=== PATIENT | female | born 1995 | race African-American/Black ===

== ENCOUNTER 2016-12-01 15:12 | Observation (INO) | payer MEDICAID ==
[~2016-12-01] VITALS: Ht 162.6 cm; Wt 61.2 kg
[~2016-12-01 15:12] MED LIST: [UNRECOGNIZED DRUG - REMARK]
[2016-12-01] MEDS ORDERED: LACTATED RINGERS 1,000 ML IV SCH (15:33)
[2016-12-01 16:00] LABS: KETONES URINE NEGATIVE (NEGATIVE); LEUKOCYTE ESTERASE URINE 1+ (NEGATIVE); NITRITE URINE NEGATIVE (NEGATIVE); OCCULT BLOOD URINE NEGATIVE (NEGATIVE); PH URINE 6.5 (4.5-8.0); PROTEIN URINE NEGATIVE (NEGATIVE); SPECIFIC GRAVITY URINE 1.011 (1.005-1.030)
[2016-12-01 16:10] LABS: CLARITY URINE CLEAR (CLEAR); COLOR URINE YELLOW (YELLOW)
== END 2016-12-01 16:40 | disposition home or self-care (01) ==
LOC: L&D 15:12
PROVIDERS: ADMIT Specialist; ATTEND Specialist
DX: O26.893 Other specified pregnancy related conditions, third trimester (principal); R10.9 Unspecified abdominal pain; N89.8 Other specified noninflammatory disorders of vagina; M54.9 Dorsalgia, unspecified; R10.2 Pelvic and perineal pain; Z3A.36 36 weeks gestation of pregnancy
CPT/HCPCS: 81001; 96360; 99281; G0378; J7120

== ENCOUNTER 2016-12-17 15:02 | Observation (INO) | payer MEDICAID ==
[~2016-12-17] VITALS: Ht 160 cm; Wt 67.6 kg
[2016-12-17] MEDS ORDERED: LACTATED RINGERS 1,000 ML IV SCH (15:22)
== END 2016-12-17 16:13 | disposition home or self-care (01) ==
LOC: L&D 15:02
PROVIDERS: ADMIT Specialist; ATTEND Specialist
DX: O62.9 Abnormality of forces of labor, unspecified (principal); Z3A.00 Weeks of gestation of pregnancy not specified
CPT/HCPCS: 96360; 99281; G0378; J7120

== ENCOUNTER 2017-04-19 12:53 | Emergency (ER) | payer MEDICAID ==
[~2017-04-19] VITALS: Ht 165.1 cm; Wt 57.0 kg
[2017-04-19] MEDS ORDERED: SODIUM CHLORIDE 0.9% 1,000 ML IV ONE (14:40)
[2017-04-19] MEDS ORDERED: KETOROLAC 30MG/ML VIAL IV STA (14:40)
[2017-04-19] MEDS ORDERED: ONDANSETRON HCL 4MG/2ML VIAL IV STA (14:40)
[2017-04-19 15:18] LABS: CHLORIDE 110 mEq/L (98-107)
[2017-04-19 15:21] LABS: BASOPHILS % 0.3 % (0.0-2.0); EOSINOPHILS % 0.5 % (0.0-5.0); HEMATOCRIT. 35.9 % (36.0-48.0); HEMOGLOBIN. 11.4 g/dL (12.0-16.0); LYMPHOCYTES % 9.4 % (20.0-50.0); MEAN CORPUSCULAR HEMOGLOBIN 24.1 pg (28.0-32.0); MEAN CORPUSCULAR VOLUME 75.4 fL (81.0-99.0); MEAN PLATELET VOLUME 9.9 fl (7.4-10.4); MONOCYTES % 6.5 % (2.0-8.0); NEUTROPHILS % 83.3 % (40.0-76.0); PLATELET 175 x1000/uL (130-400); RED BLOOD CELL COUNT 4.76 mill/uL (4.2-5.4); RED CELL DISTRIBUTION WIDTH 18.2 % (11.6-14.6)
[2017-04-19 15:23] LABS: CLARITY URINE CLEAR (CLEAR); COLOR URINE DARK YELLOW (YELLOW); GLUCOSE URINE NEGATIVE (NEGATIVE); KETONES URINE 1+ (NEGATIVE); LEUKOCYTE ESTERASE URINE TRACE (NEGATIVE); NITRITE URINE POSITIVE (NEGATIVE); OCCULT BLOOD URINE NEGATIVE (NEGATIVE); PROTEIN URINE TRACE (NEGATIVE); SPECIFIC GRAVITY URINE 1.028 (1.005-1.030); UROBILINOGEN URINE 0.2 E.U./dL (0.2-1.0)
[2017-04-19 15:26] LABS: HCG SCREEN NEGATIVE
[2017-04-19 15:35] LABS: *AMPHETAMINES SCREEN URINE NEGATIVE (NEGATIVE); *BARBITURATES SCREEN URINE NEGATIVE (NEGATIVE); *BENZODIAZEPINES SCREEN URINE NEGATIVE (NEGATIVE); *COCAINE SCREEN URINE NEGATIVE (NEGATIVE); CANNABINOID URINE SCREEN NEGATIVE (NEGATIVE); METHADONE URINE SCREEN NEGATIVE (NEGATIVE); OPIATES URINE SCREEN NEGATIVE (NEGATIVE); PHENCYCLIDINE URINE SCREEN NEGATIVE (NEGATIVE)
[2017-04-19 15:53] LABS: CARBON DIOXIDE 22 mEq/L (21-32)
[2017-04-19 16:27] VITALS: BP 112/67
== END 2017-04-19 17:15 | disposition home or self-care (01) ==
LOC: ER 12:53
DX: N39.0 Urinary tract infection, site not specified (principal); R07.9 Chest pain, unspecified; R11.2 Nausea with vomiting, unspecified; D64.9 Anemia, unspecified; F17.200 Nicotine dependence, unspecified, uncomplicated; Z98.890 Other specified postprocedural states
CPT/HCPCS: 36415; 71010; 74000; 80053; 80305; 81001; 83690; 84703; 85025; 93005; 96361; 96374; 96375; 99285; J1885; J2405; Z7610; J7030